=== PATIENT | female | born 2000 | race Two or more races ===

== ENCOUNTER 2022-06-16 10:56 | Emergency (ER) | payer MEDICAID, OTHER ==
[~2022-06-16] VITALS: Ht 160 cm; Wt 51.0 kg
[2022-06-16 12:46] LABS: Urine Bacteria FEW /hpf (None Seen); Urine Blood 1+ /uL (Negative); Urine Hyaline Cast MANY /lpf (0 - 2); Urine Specific Gravity 1.017 (1.001-1.035); Urine WBC 20 /hpf (0 - 5)
[2022-06-16] MEDS ORDERED: ACETAMINOPHEN 500 MG TAB PO ONE (14:15)
[2022-06-16] MEDS ORDERED: cefTRIAXone SOD 1,000 MG VL IM ONE (14:15)
[2022-06-16 14:36] VITALS: BP 108/70
[2022-06-16] MEDS ORDERED: ACET1CAP14 PO (15:44)
[2022-06-16] MEDS ORDERED: PENI500T2 PO (15:44)
[2022-06-16] MEDS ORDERED: BENZ1LOZ3 MT (15:44)
[2022-06-16] MEDS ORDERED: CEPH-510 PO (15:46)
== END 2022-06-16 15:49 | disposition home or self-care (01) ==
LOC: ER 10:56
DX: J02.0 Streptococcal pharyngitis (principal); N39.0 Urinary tract infection, site not specified
CPT/HCPCS: 81001; 87880; 96372; 99283; J0696